=== PATIENT | female | born 2000 | race Caucasian/White ===

== ENCOUNTER 2024-04-18 14:53 | Emergency (ER) | payer OTHER ==
[~2024-04-18] VITALS: Ht 152.4 cm; Wt 45.4 kg
[2024-04-18 15:26] VITALS: BP 100/60; TEMP 98.1
[2024-04-18] MEDS ORDERED: CLOT21CR12 VG (16:03)
[2024-04-18] MEDS ORDERED: FLUC150T PO (16:03)
[2024-04-18 16:17] VITALS: O2SAT 98
[2024-04-18 17:06] LABS: APPEARANCE,URINE CLEAR (CLEAR); BILIRUBIN,URINE NEGATIVE (NEGATIVE); BLOOD, URINE NEGATIVE Ery/uL (NEGATIVE); COLOR,URINE YELLOW (YELLOW); KETONES,URINE NEGATIVE (NEGATIVE); LEUKOCYTE ESTERASE ,URINE 1+ (NEGATIVE); NITRITE, URINE NEGATIVE (NEGATIVE); PROTEIN,URINE TRACE mg/dl (NEGATIVE); UGLUCOSE NEGATIVE (NEGATIVE); UROBILINOGEN,URINE 0.2 EU/dL (0.2)
[2024-04-18 17:12] LABS: PREGNANCY TEST URINE QUAL NEGATIVE (NEGATIVE)
[2024-04-18 17:17] LABS: ADD URINE CULTURE YES; BACTERIA,URINE 2+ /HPF (None Seen); MUCUS,URINE Few /LPF (None Seen); RBC,URINE 0-2 /HPF (0-2)
== END 2024-04-18 16:18 | disposition home or self-care (01) ==
LOC: ER 14:53
DX: B37.31 Acute candidiasis of vulva and vagina (principal); Z87.440 Personal history of urinary (tract) infections
CPT/HCPCS: 81001; 84703-TC; 87086-TC

== ENCOUNTER → 2024-04-18 | Emergency (ER) | payer SELFPAY ==
[~2024-04-18] MED LIST: CLOT21CR12 VG; FLUC150T PO
== END | disposition left against medical advice (07) ==
LOC: ER 11:25
DX: R10.9 Unspecified abdominal pain (principal); Z53.21 Procedure and treatment not carried out due to patient leaving prior to being seen by health care provider

== ENCOUNTER 2024-08-27 11:12 | Emergency (ER) | payer OTHER ==
[~2024-08-27] VITALS: Ht 160 cm; Wt 48.5 kg
[2024-08-27 11:20] VITALS: BP 116/69
[2024-08-27] MEDS ORDERED: ACETAMINOPHEN ES 500 MG TABLET ONE (12:58)
[2024-08-27 13:08] VITALS: TEMP 99
[2024-08-27] MEDS: ACETAMINOPHEN 325 MG TABLET PO ONE (13:08)
[2024-08-27] MEDS ORDERED: IBUP-1490 PO (13:36)
[2024-08-27] MEDS ORDERED: DOXY100T2 PO (13:36)
[2024-08-27] MEDS ORDERED: DOXYCYCLINE HYCLATE (100 MG) 100 MG TABLET ONE (13:39)
[2024-08-27 13:40] VITALS: O2SAT 99
[2024-08-27] MEDS: DOXYCYCLINE HYCLATE (100 MG) 100 MG TABLET PO ONE (13:43)
== END 2024-08-27 13:44 | disposition home or self-care (01) ==
LOC: ER 11:18
DX: J18.8 Other pneumonia, unspecified organism (principal); R05.9 Cough, unspecified; R09.81 Nasal congestion; Z20.822 Contact with and (suspected) exposure to COVID-19
CPT/HCPCS: 71045-TC

== ENCOUNTER 2024-08-28 12:45 | Emergency (ER) | payer OTHER ==
[~2024-08-28] VITALS: Ht 165.1 cm; Wt 54.4 kg
[~2024-08-28 12:45] MED LIST changes: +DOXY100T2 PO; +IBUP-1490 PO
[2024-08-28 14:26] VITALS: BP 108/73; TEMP 98.8; O2SAT 99
== END 2024-08-28 14:26 | disposition home or self-care (01) ==
LOC: ER 12:55
DX: J18.9 Pneumonia, unspecified organism (principal); M54.6 Pain in thoracic spine